=== PATIENT | male | born 1980 | race Caucasian/White ===

== ENCOUNTER 2024-12-08 07:43 | Outpatient (CLI) | payer OTHER, SELFPAY | END 2024-12-08 07:44 | disposition home or self-care (01) | PROVIDERS: PCP Physician Assistant Medical; Visit Provider Physician Assistant Medical | DX: E78.2 Mixed hyperlipidemia (principal); L20.84 Intrinsic (allergic) eczema; L30.9 Dermatitis, unspecified; K52.9 Noninfective gastroenteritis and colitis, unspecified | CPT/HCPCS: 80053; 80061; 83516; 84443 ==

== ENCOUNTER 2025-01-02 07:53 | Outpatient (CLI) | payer OTHER, SELFPAY ==
--- NOTE | 2025-01-02 09:43 | W.ANESCHARGE ---
Anesthesia Charges Start Date/Time Anesthesia Start Date: 01/02/25 Anesthesia Start Time: 09:13 Stop Date/Time Anesthesia Stop Date: 01/02/25 Anesthesia Stop Time: 09:40 Coding CPT Codes CPT Codes: DONNY LWR INTST NDSC NOS - [id number] ([id number]) P2 - PATIENT W/MILD SYST DISEASE, QK - COAL WEIGHER 2-4 CNCRNT ANES PROC, QX - INSURANCE BUSINESS ANALYST SVC W/ MD MED DIRECTION
--- NOTE | 2025-01-02 10:44 | W.ANESCHARGE ---
Anesthesia Charges Start Date/Time Anesthesia Start Date: 01/02/25 Anesthesia Start Time: 09:13 Stop Date/Time Anesthesia Stop Date: 01/02/25 Anesthesia Stop Time: 09:40 Coding CPT Codes CPT Codes: DONNY LWR INTST NDSC NOS - [id number] ([id number]) P2 - PATIENT W/MILD SYST DISEASE, QK - VENEER LATHE OPERATOR 2-4 CNCRNT ANES PROC, QX - FRAME PULLEY MORTISING MACHINE OPERATOR SVC W/ MD MED DIRECTION
== END 2025-01-02 07:54 | disposition home or self-care (01) ==
PROVIDERS: PCP Physician Assistant Medical; Visit Provider Surgery
DX: Z12.11 Encounter for screening for malignant neoplasm of colon (principal); D12.2 Benign neoplasm of ascending colon; D12.8 Benign neoplasm of rectum
CPT/HCPCS: 00811; 45385; 88305; J2704